=== PATIENT | female | born 1985 | race Caucasian/White ===

== ENCOUNTER 2020-07-15 15:35 | Emergency (ER) | payer OTHER ==
[~2020-07-15] VITALS: Ht 162.5 cm; Wt 59.0 kg
[2020-07-15 16:19] LABS: BASO % 0.3 % (0.0-1.0); EOS % 0.1 % (1.0-4.0); HEMATOCRIT 44.3 % (37.0-47.0); LYMPH # 1.5 10*3/uL (1.3-4.4); LYMPH % 13.7 % (27.0-41.0); MEAN CORPUSCULAR HGB 29.4 pg (27.0-31.0); MEAN CORPUSCULAR HGB CONC 32.3 g/dl (33.0-37.0); MEAN PLATELET VOLUME 9.8 fl (9.6-12.3); MONO # 0.4 10*3/uL (0.1-1.0); MONO % 3.8 % (3.0-9.0); NEUT # 9.1 10*3/uL (2.3-7.9); NEUT % 81.8 % (47.0-73.0); PLATELET COUNT AUTOMATED 303 10*3/uL (130-400); RED BLOOD COUNT 4.87 10*6/uL (4.10-5.10); RED CELL DISTRI WIDTH 14.5 % (0-14.5); WHITE BLOOD COUNT 11.2 10*3/uL (4.8-10.8)
[2020-07-15 16:25] LABS: BILIRUBIN Negative (Negative); BLOOD 2+ (Negative); CLARITY Clear (Clear); COLOR Yellow (Yellow); GLUCOSE Negative (Negative); KETONE 2+ (Negative); LEUKO ESTERASE Negative (Negative); NITRITE Negative (Negative)
[2020-07-15 16:36] LABS: ALKALINE PHOSPHATASE 65 U/L (45-117); BUN 7 mg/dl (7-24); CHLORIDE 109 mmol/L (98-107); CREATININE 0.69 mg/dL (0.55-1.02); LIPASE 46 U/L (73-393); POTASSIUM 3.5 mmol/L (3.5-5.1); SGOT/AST 14 IU/L (3-35); SGPT/ALT 22 U/L (12-78); SODIUM 141 mmol/L (136-145); TOTAL PROTEIN 7.5 gm/dL (6.4-8.2)
[2020-07-15 16:38] LABS: PH >= 9.0 (4.5-8.0)
[2020-07-15 16:40] LABS: BACTERIA 2+; EPITHELIAL CELLS 51-100; WBC 0-2 wbc/hpf (0-5)
[2020-07-15] MEDS ORDERED: ZOFRAN4 MG PO (17:36)
== END 2020-07-15 18:16 | disposition home or self-care (01) ==
LOC: ED 15:35
PROVIDERS: Emergency Medicine
DX: R11.2 Nausea with vomiting, unspecified (principal); R10.9 Unspecified abdominal pain; Z88.5 Allergy status to narcotic agent